=== PATIENT | female | born 2000 | race Caucasian/White ===

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

== ENCOUNTER 2023-03-23 13:34 | Outpatient (CLI) | payer OTHER, SELFPAY ==
--- NOTE | 2023-03-23 | ECG_ITS ---
Measurements Intervals [place] Rate: 63 P: 74 NV: 180 QRS: 88 QRSD: 90 T: 48 QT: 375 QTc: 386 Interpretive Statements SINUS RHYTHM POSSIBLE LEFT ATRIAL ENLARGEMENT [-0.1mV P WAVE IN V1/V2] NO PREVIOUS ECG AVAILABLE FOR COMPARISON Electronically Signed On 03-24-2023 8:47:24 CDT by Venecia Diallo M.D.
== END 2023-03-23 13:35 | disposition home or self-care (01) ==
LOC: ANHCARD 13:36
PROVIDERS: PCP Pediatrics; Visit Provider Pediatrics
DX: R00.0 Tachycardia, unspecified (principal)
CPT/HCPCS: 93005